=== PATIENT | male | born 1955 | race Caucasian/White ===

== ENCOUNTER 2021-09-09 23:19 | Inpatient (IN) | payer MEDICAID ==
[~2021-09-09] VITALS: Ht 182.9 cm; Wt 93.0 kg
[~2021-09-09 23:19] MED LIST: ALBUAER3 IN; IPRIH IN; LEVO500T31 PO; NIC21P TOP; PRED20TA2 PO
[2021-09-10 01:26] LABS: Basophils # (auto) 0.1 10 ^3/uL (0-0.2); Basophils % (auto) 0.3 % (0.0-2.0); Eosinophils # (auto) 0 10 ^3/uL (0-0.8); Hematocrit 51.3 % (41.0-53.0); Hemoglobin 17.6 g/dL (13.5-17.5); Lymphocytes # (auto) 0.8 10 ^3/uL (0.4-5.4); Lymphocytes % (auto) 3.3 % (10.0-50.0); Mean Corpuscular Hemoglobin 31.5 pg (28.0-32.0); Mean Corpuscular Hgb Conc. 34.4 g/dL (32.0-36.0); Mean Corpuscular Volume 91.7 fL (80.0-100.0); Monocytes # (auto) 1.2 10 ^3/uL (0-1.3); Neutrophils # (auto) 21.4 10 ^3/uL (1.6-8.6); Neutrophils % (auto) 91.4 % (37.0-80.0); Nucleated Red Blood Cells % 0.1 %; Red Cell Distribution Width 13.6 % (11.8-14.3); White Blood Cell 23.5 10^3/uL (4.4-10.8)
[2021-09-10 01:34] LABS: Albumin 3.4 g/dL (3.4-5.0); BUN/Creatinine Ratio 17.4; Calcium 9.5 mg/dL (8.5-10.1); Potassium 5.5 mmol/L (3.5-5.1)
[2021-09-10 01:36] LABS: Bilirubin, Total 0.9 mg/dL (0.2-1.0); Total Protein 7.8 g/dL (6.4-8.2)
[2021-09-10 03:00] LABS: Urine Bacteria None Seen /hpf (None Seen)
[2021-09-10 03:53] LABS: Urine Specific Gravity 1.036 (1.001-1.035)
[2021-09-10 03:54] LABS: Urine Blood Normal /uL (Negative)
[2021-09-10 04:00] LABS: Urine Amorphous Crystal MODERATE /hpf (None Seen); Urine WBC 2 /hpf (0 - 3)
[2021-09-10] MEDS ORDERED: SODIUM CHLORIDE 0.9% 2,450 ML IV ONE (05:45)
[2021-09-10] MEDS ORDERED: cefTRIAXone 1GM/50ML D5W 50 ML IV ONE ×2 (05:45→15:30)
[2021-09-10 06:22] LABS: INR 1.07 (0.9-1.15)
[2021-09-10] MEDS ORDERED: MORPHINE SULFATE 4 MG/ML SYR/VIAL IV ONE (10:45)
[2021-09-10] MEDS ORDERED: SODIUM BICARBONATE 8.4% INJ 50ML SYRINGE IV ONE (10:45)
[2021-09-10] MEDS ORDERED: ALBUTEROL SULF 2.5 MG/0.5ML(0.5%) NEB SOLN NEB ONE (10:45)
[2021-09-10] MEDS ORDERED: CALCIUM CHL 100MG/ML 1,000 MG in D5W 5% 100 ML IV ONE (10:45)
[2021-09-10] MEDS ORDERED: NITROGLYCERIN 0.4 MG SL TAB SL PRN (10:45)
[2021-09-10] MEDS ORDERED: InsuLIN REG 1unit/0.01ml Soln (100units/ml) IV ONE (10:45)
[2021-09-10] MEDS ORDERED: MORPHINE SULFATE INJECTION 2 MG/ML SYRG IV PRN (10:45)
[2021-09-10] MEDS ORDERED: DEXTROSE (50%) 50ML SYRG IV ONE (10:45)
[2021-09-10] MEDS ORDERED: SODIUM ZIRCONIUM CYCL 10 GM PAK PO ONE (10:45)
[2021-09-10] MEDS ORDERED: ONDANSETRON HCL 4 MG/2 ML VIAL IV ONE (10:45)
[2021-09-10] MEDS ORDERED: FUROSEMIDE 40 MG/4 ML VIAL IV ONE (10:45)
[2021-09-10] MEDS ORDERED: InsuLIN REG 1unit/0.01ml Soln (100units/ml) ONE (13:34)
[2021-09-10] MEDS ORDERED: HYDROcodone-ACET 5/325MG TAB PO PRN (15:30)
[2021-09-10] MEDS ORDERED: LORazepam 0.5 MG TAB PO PRN (15:30)
[2021-09-10] MEDS ORDERED: ONDANSETRON HCL 4 MG/2 ML VIAL IV PRN (15:30)
[2021-09-10] MEDS ORDERED: hydrALAZINE HCL 20 MG/ML VL IV PRN (15:30)
[2021-09-10] MEDS ORDERED: DOCUSATE SOD 100 MG CAP PO PRN (15:30)
[2021-09-10 15:45] LABS: Magnesium 2.4 mg/dL (1.6-2.6)
[2021-09-10 15:53] VITALS: BP 143/88
[2021-09-10 17:54] VITALS: BP 137/86
[2021-09-10] MEDS: MORPHINE SULFATE INJECTION 2 MG/ML SYRG IV PRN (18:24)
[2021-09-10 19:18] LABS: INR 1.05 (0.9-1.15); Partial Thromboplastin Time 26.5 sec (23.6-33.0)
[2021-09-10] MEDS: IPRATROPIUM BROM 0.5 MG/2.5ML INH SOL NEB SCH ×2 (19:27→22:00)
[2021-09-10 20:00] VITALS: BP 117/61
[2021-09-10 21:19] VITALS: BP 117/61
[2021-09-11] MEDS: IPRATROPIUM BROM 0.5 MG/2.5ML INH SOL NEB SCH ×6 (02:00→22:20)
[2021-09-11 05:00] VITALS: BP 141/82
[2021-09-11] MEDS: MORPHINE SULFATE INJECTION 2 MG/ML SYRG IV PRN ×2 (05:08→15:50)
[2021-09-11 05:55] LABS: Basophils # (auto) 0.1 10 ^3/uL (0-0.2); Basophils % (auto) 0.4 % (0.0-2.0); Eosinophils # (auto) 0 10 ^3/uL (0-0.8); Hematocrit 47.6 % (41.0-53.0); Hemoglobin 16.5 g/dL (13.5-17.5); Lymphocytes % (auto) 4.4 % (10.0-50.0); Mean Corpuscular Hemoglobin 31.5 pg (28.0-32.0); Mean Corpuscular Hgb Conc. 34.7 g/dL (32.0-36.0); Monocytes % (auto) 9.2 % (0.0-12.0); Neutrophils # (auto) 18.8 10 ^3/uL (1.6-8.6); Red Blood Cells 5.23 10^6/uL (4.5-5.90); Red Cell Distribution Width 13.4 % (11.8-14.3); White Blood Cell 21.9 10^3/uL (4.4-10.8)
[2021-09-11 06:12] LABS: INR 1.13 (0.9-1.15); Partial Thromboplastin Time 25.2 sec (23.6-33.0)
[2021-09-11 06:16] LABS: Potassium 4.8 mmol/L (3.5-5.1)
[2021-09-11 06:30] LABS: Albumin 2.7 g/dL (3.4-5.0); BUN/Creatinine Ratio 17.4; Bilirubin, Total 1.1 mg/dL (0.2-1.0); CRP High Sensitivity 17.3 mg/dL (< 0.3); Calcium 9.2 mg/dL (8.5-10.1); Phosphorus 2.8 mg/dL (2.5-4.90); Total Protein 6.9 g/dL (6.4-8.2)
[2021-09-11] MEDS: cefTRIAXone 1GM/50ML D5W 50 ML IV SCH (08:03)
[2021-09-11] MEDS: FAMOTIDINE (10MG/ML) 2ML VL IV SCH (08:03)
[2021-09-11] MEDS: ENOXAPARIN SOD 40 MG/0.4 ML SYRINGE SC SCH (08:04)
[2021-09-11] MEDS: NICOTINE 21MG/24 HR TOPICAL PATCH TD SCH (08:10)
[2021-09-11 08:45] VITALS: BP 107/83
[2021-09-11 10:39] LABS: Alcohol, Urine < 3.0 mg/dL (0-10); Barbiturate Scree,Urine NEGATIVE (NEGATIVE); Benzodiazephine Screen, Urine NEGATIVE (NEGATIVE); Cannabinoid Screen, Urine NEGATIVE (NEGATIVE); Cocaine Screen, Urine NEGATIVE (NEGATIVE); Opiate Scree,Urine POSITIVE (NEGATIVE); Phencyclidine Screen, Urine NEGATIVE (NEGATIVE)
[2021-09-11 10:49] LABS: Amphetamine Screen, Urine POSITIVE (NEGATIVE)
[2021-09-11 12:43] VITALS: BP 107/73
[2021-09-11 17:00] VITALS: BP 112/65
[2021-09-11] MEDS: ACETAMINOPHEN 500 MG TAB PO PRN (17:31)
[2021-09-11 20:00] VITALS: BP 117/61
[2021-09-11 21:28] VITALS: BP 117/69
[2021-09-12] MEDS: ACETAMINOPHEN 500 MG TAB PO PRN (01:08)
[2021-09-12] MEDS: IPRATROPIUM BROM 0.5 MG/2.5ML INH SOL NEB SCH ×3 (02:00→10:02)
[2021-09-12 05:00] VITALS: BP 130/80
[2021-09-12 06:22] LABS: Basophils # (auto) 0.1 10 ^3/uL (0-0.2); Basophils % (auto) 0.4 % (0.0-2.0); Eosinophils # (auto) 0 10 ^3/uL (0-0.8); Hematocrit 43.8 % (41.0-53.0); Hemoglobin 15.4 g/dL (13.5-17.5); Lymphocytes # (auto) 1.3 10 ^3/uL (0.4-5.4); Mean Corpuscular Hemoglobin 31.7 pg (28.0-32.0); Mean Corpuscular Hgb Conc. 35.1 g/dL (32.0-36.0); Mean Corpuscular Volume 90.3 fL (80.0-100.0); Monocytes % (auto) 9.3 % (0.0-12.0); Neutrophils # (auto) 18.3 10 ^3/uL (1.6-8.6); Neutrophils % (auto) 84.3 % (37.0-80.0); Red Blood Cells 4.85 10^6/uL (4.5-5.90); Red Cell Distribution Width 13.6 % (11.8-14.3); White Blood Cell 21.8 10^3/uL (4.4-10.8)
[2021-09-12 06:30] LABS: BUN/Creatinine Ratio 20.8; Calcium 8.9 mg/dL (8.5-10.1); Potassium 4.3 mmol/L (3.5-5.1)
[2021-09-12] MEDS: FAMOTIDINE (10MG/ML) 2ML VL IV SCH (08:36)
[2021-09-12] MEDS: cefTRIAXone 1GM/50ML D5W 50 ML IV SCH (08:37)
[2021-09-12] MEDS: ENOXAPARIN SOD 40 MG/0.4 ML SYRINGE SC SCH (08:37)
[2021-09-12] MEDS: NICOTINE 21MG/24 HR TOPICAL PATCH TD SCH (08:37)
[2021-09-12] MEDS: MORPHINE SULFATE INJECTION 2 MG/ML SYRG IV PRN (08:49)
[2021-09-12 09:00] VITALS: BP 117/76
[2021-09-12] MEDS ORDERED: LEVO750T8 PO (09:58)
[2021-09-12 11:20] VITALS: BP 154/86
== END 2021-09-12 12:45 | disposition home or self-care (01) | DRG 501 ==
LOC: ER 23:38 → TELE 09-10 10:39 → TELE-CENTR 09-10 17:32
PROVIDERS: ADMIT Hospitalist; ATTEND Internal Medicine Pulmonary Disease
DX: N45.1 Epididymitis (principal); E78.5 Hyperlipidemia, unspecified; N43.3 Hydrocele, unspecified; F17.210 Nicotine dependence, cigarettes, uncomplicated; I10 Essential (primary) hypertension; I25.10 Atherosclerotic heart disease of native coronary artery without angina pectoris; J44.9 Chronic obstructive pulmonary disease, unspecified; N43.42 Spermatocele of epididymis, multiple; Z20.822 Contact with and (suspected) exposure to COVID-19
CPT/HCPCS: 36415; 36600; 71045; 74176; 76870; 80048; 80053; 80061; 80307; 81001; 82550; 82728; 82805; 82962; 83605; 83615; 83690; 83735; 83880; 84100; 84132; 84443; 84484; 85025; 85379; 85610; 85652; 85730; 86141; 87040; 87070; 87081; 87086; 87205; 93005; 94640; 94644; 96365; 96367; 96375; 96376; G0378; J0696; J1815; J2405; J3490; J7060